=== PATIENT | female | born 1930 | race Caucasian/White ===

== ENCOUNTER 2016-07-24 11:13 | Observation (INO) | payer MEDICARE, OTHER ==
[~2016-07-24] VITALS: Ht 157.5 cm; Wt 70.0 kg
[2016-07-24] VITALS (9 sets, daily range): BP systolic 87–137; BP diastolic 58–82; PULSE 72–82; RESP 16–20; TEMP 98.5; O2SAT 94–99
[~2016-07-24 11:13] MED LIST: ALTA1.256 PO; CALC250 PO; GLUC500C3 PO; LORTAB 5/325 PO; LOVA1TAB47 PO; NEUR300C PO; NEXI20CA PO; NITR-29 OR; TAB-TAB PO; TOPR50TA PO
[2016-07-24] MEDS ORDERED: SODIUM CHLOR 0.9% 1000 ML INJ 1,000 ML IV ONE (11:34)
--- NOTE | 2016-07-24 11:51 | PD ---
HPI Chief Complaint: Abnormal Results Time Seen by Provider: 11:47 Travel History International Travel<30 days: No Contact w/Intl Traveler<30days: No Traveled to known affect area: No History of Present Illness HPI 86-year-old female that presents to the ED for evaluation of altered mental status and hypotension. Patient comes from a correction. Patient apparently was very lethargic and hard to arouse at the facility. Patient was found in the morning but had this episode where she was hard to arouse. Patient was found to be very hypotensive. Patient was given a bolus of fluid with improvement of mentation. Patient denies her having like this before. She does take multiple blood pressure medications. She denies any chest pain or shortness of breath. No headache. 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 She denies any bleeding of any kind. No fevers chills or sweats. Allergies to Levaquin, Lipitor, lisinopril, Percocet, Plavix, Ticlid and Zocor. She states that she is compliant with her medications at the facility which she states. She denies any symptoms at this time but did filled somewhat tired. No obvious falls. No other injuries reported. No pain. She is not sure if she takes any blood thinners. PFSH Past Medical History Arthritis: Yes Autoimmune Disease: No Anxiety: No Depression: No Heart Rhythm Problems: Yes Cancer: Yes (SKIN) Cardiovascular Problems: Yes High Cholesterol: Yes Chest Pain: No Congestive Heart Failure: No Cerebrovascular Accident: Yes (TIA) Diabetes: No Endocrine: No Gastrointestinal Disorders: Yes (HX RECTAL BLEEDING 2008) GERD: Yes Genitourinary: Yes Hiatal Hernia: Yes Hypertension: Yes Immune Disorder: No Implanted Vascular Access Dvce: Yes Musculoskeletal: Yes Neurologic: Yes Psychiatric: No Reproductive: No Respiratory: No Migraines: Yes (POSSIBLE 40 YEARS AGO) Seizures: No Thyroid Disease: No Ulcer: No Tetanus Vaccination: Unknown Influenza Vaccination: Yes Menopausal: Yes Tubal Ligation: Yes Past Surgical History Abdominal Surgery: Yes (ABDOMINAL ABCESS AND COLON RESECTION) Body Medical Devices: SPINAL CORD STIMULATOR,HARDWARE IN BACK,FOOT WITH PLATE AND PINS Cardiac Surgery: Yes (AMOL VALVE REPAIR 1995, BILATERAL BUNIONECTOMY) Gynecologic Surgery: Yes (C SECTION X 3 TUBAL LIGATION) Neurologic Surgery: Yes (LAMINECTOMY AND FUSION L4 S1) Pacemaker: No Other Surgery: Yes Social History Alcohol Use: No Tobacco Use: No Substance Use: No Allergies-Medications (Allergen,Severity, Reaction): Coded Allergies: Levaquin (Unverified Allergy, Severe, TONGUE SWELLS, 07/24/16) Lipitor (Unverified Allergy, Severe, HIVES, RECTAL ITCHING, 07/24/16) Lisinopril (Unverified Allergy, Severe, UNKNOWN, 07/24/16) Percocet (Unverified Allergy, Severe, FEEL LIKE NAUSEA AND VOMITING, BUT NOT VOMITING, 07/24/16) Plavix (Unverified Allergy, Severe, UNKNOWN, 07/24/16) Ticlid (Unverified Allergy, Severe, UNKNOWN, 07/24/16) Zocor (Unverified Allergy, Severe, UNKNOWN, 07/24/16) Reported Meds & Prescriptions Reported Meds & Active Scripts Active Review of Systems Except as stated in HPI: all other systems reviewed are Neg Physical Exam Narrative GENERAL: SKIN: Warm and dry. HEAD: Atraumatic. Normocephalic. EYES: Pupils equal and round 4 mm reactive to light and accommodation. No scleral icterus. No injection or drainage. ENT: No nasal bleeding or discharge. Mucous membranes pink and moist. Tongue is midline. No uvula deviation. NECK: Trachea midline. No JVD. CARDIOVASCULAR: Regular rate and rhythm. No murmurs, S3, S4. RESPIRATORY: No accessory muscle use. Clear to auscultation. Breath sounds equal bilaterally. GASTROINTESTINAL: Abdomen soft, non-tender, nondistended. Hepatic and splenic margins not palpable. MUSCULOSKELETAL: Extremities without clubbing, cyanosis, or edema. No obvious deformities. Full range of motion of the upper and lower extremities bilaterally. 2+ pulses bilaterally. NEUROLOGICAL: Awake and alert. No obvious cranial nerve deficits. Motor grossly within normal limits. Five out of 5 muscle strength in the arms and legs. Normal speech. PSYCHIATRIC: Appropriate mood and affect; insight and judgment normal. Data Data Last Documented VS Vital Signs Date Time Temp Pulse Resp B/P Pulse Ox O2 Delivery O2 Flow Rate FiO2 07/24/16 13:38 72 18 93/65 95 Nasal Cannula 2 07/24/16 11:18 98.5 Orders Electrocardiogram (07/24/16 11:29) Complete Blood Count With Diff (07/24/16 11:29) Basic Metabolic Panel (Bmp) (07/24/16 11:29) Ckmb (Isoenzyme) Profile (07/24/16 11:29) Troponin I (07/24/16 11:29) Prothrombin Time / Inr (Pt) (07/24/16 11:29) Act Partial Throm Time (Ptt) (07/24/16 11:29) Urinalysis - C+S If Indicated (07/24/16 11:29) Magnesium (Mg) (07/24/16 11:29) Thyroid Stimulating Hormone (07/24/16 11:29) Chest, Single Ap (07/24/16 11:29) Ct Brain W/O Iv Contrast(Rout) (07/24/16 11:29) Iv Access Insert/Monitor (07/24/16 11:29) Ecg Monitoring (07/24/16 11:29) Oximetry (07/24/16 11:29) Orthostatic Vital Signs (07/24/16 11:29) Sodium Chlor 0.9% 1000 Ml Inj (Ns 1000 M (07/24/16 11:34) Lactic Acid (07/24/16 11:51) Cath For Specimen (07/24/16 12:58) Free Thyroxine (T4) (07/24/16 13:27) Place In Observation (07/24/16 ) Vital Signs (Adult) Q4H (07/24/16 13:41) Activity Bed Rest (07/24/16 13:41) Scout Sniper / Telemetry .CONTINUOUS (07/24/16 13:41) Diet Regular Basic (07/24/16 Lunch) Sodium Chlor 0.45% 1000 Ml Inj (1/2 Ns 1 (07/24/16 13:41) Sodium Chloride 0.9% Flush (Ns Flush) (07/24/16 13:45) Sodium Chloride 0.9% Flush (Ns Flush) (07/24/16 21:00) Basic Metabolic Panel (Bmp) (07/25/16 06:00) Complete Blood Count With Diff (07/25/16 06:00) Creatine Kinase (Cpk) (07/24/16 13:41) Creatine Kinase (Cpk) (07/24/16 19:41) Troponin I (07/24/16 13:41) Troponin I (07/24/16 19:41) Heparin Inj (Heparin Inj) (07/24/16 13:45) Naloxone Inj (Narcan Inj) (07/24/16 13:45) Admit Order (Ed Use Only) (07/24/16 13:45) Labs Laboratory Tests Test 07/24/16 07/24/16 12:00 12:25 White Blood Count 13.1 TH/MM3 Red Blood Count 4.27 MIL/MM3 Hemoglobin 12.9 GM/DL Hematocrit 39.2 % Mean Corpuscular Volume 91.9 FL Mean Corpuscular Hemoglobin 30.2 PG Mean Corpuscular Hemoglobin 32.9 % Concent Red Cell Distribution Width 13.5 % Platelet Count 358 TH/MM3 Mean Platelet Volume 6.9 FL Neutrophils (%) (Auto) 69.1 % Lymphocytes (%) (Auto) 19.9 % Monocytes (%) (Auto) 9.7 % Eosinophils (%) (Auto) 0.8 % Basophils (%) (Auto) 0.5 % Neutrophils # (Auto) 9.0 TH/MM3 Lymphocytes # (Auto) 2.6 TH/MM3 Monocytes # (Auto) 1.3 TH/MM3 Eosinophils # (Auto) 0.1 TH/MM3 Basophils # (Auto) 0.1 TH/MM3 CBC Comment DIFF FINAL Differential Comment Prothrombin Time 11.8 SEC Prothromb Time International 1.1 RATIO Ratio Activated Partial 27.8 SEC Thromboplast Time Sodium Level 129 MEQ/L Potassium Level 4.4 MEQ/L Chloride Level 95 MEQ/L Carbon Dioxide Level 23.2 MEQ/L Anion Gap 11 MEQ/L Blood Urea Nitrogen 30 MG/DL Creatinine 1.90 MG/DL Estimat Glomerular Filtration 25 ML/MIN Rate Random Glucose 90 MG/DL Calcium Level 8.8 MG/DL Magnesium Level 2.0 MG/DL Total Creatine Kinase 57 U/L Troponin I LESS THAN 0.02 NG/ML Thyroid Stimulating Hormone 6.540 uIU/ML 3rd Gen Lactic Acid Level 1.5 mmol/L MDM Medical Decision Making Medical Screen Exam Complete: Yes Emergency Medical Condition: Yes Medical Record Reviewed: Yes Interpretation(s) CBC & BMP Diagram 07/24/16 12:[address] 07/24/16 1129 Signed Impressions: Service Date/Time: Sunday, July 24, 2016 12:48 - CONCLUSION: Negative for acute process. Lazaro Pierre MD FACR Chest X-Ray 07/24/16 1129 Signed Impressions: Service Date/Time: Sunday, July 24, 2016 11:53 - CONCLUSION: 1. Minimal basilar atelectasis. Postoperative changes as above. Ismael King MD EKG shows sinus rhythm with no sign of acute ischemia or arrythmia read by me and attending. Differential Diagnosis Hypotension versus bleed versus upper mental status versus CVA versus ACS versus bleeding versus overmedication versus medication side effect Narrative Course 86-year-old female that presents to the ED for evaluation of episode of altered mental status with found hypotension. Patient was properly examined and was found to have signs and symptoms of unclear etiology. At this time patient's symptoms seemed to have improved with just fluids. Concern for bleed versus severe overmedication versus CVA or ACS. Patient does have risk factors fall. Recommendation at this time is for labs and imaging. Patient was given 1 L of fluids. Labs and imaging showed no sign of acute disease other than what appears to be acute kidney injury. Patient still hypotensive on exam. Patient still symptomatic whenever she stands up. Unclear etiology for the hypotension but because of her symptoms and still weakness and her recent altered mental status and do recommend obs admission to better evaluate for the hypotension and weakness. She is ago with this plan. Hemoccult was done by me and was negative. Case discussed with Dr. Boothe who agrees to admission Procedures EKG Prior to Arrival: No Diagnosis Primary Impression: Altered mental status Qualified Code: R40.0 - Somnolence Additional Impressions: Hypotension Qualified Code: I95.9 - Hypotension, unspecified hypotension type Acute kidney injury Admitting Information Admitting Physician Requests: Declan Gomez Jul 24, 2016 11:51
--- NOTE | 2016-07-24 12:22 | RADRPT ---
EXAM DATE/TIME: 07/24/2016 11:53 [facility] COMPARISON: No previous studies available for comparison. INDICATIONS : Syncope. Low blood pressure. MEDICAL HISTORY : None. SURGICAL HISTORY : None. ENCOUNTER: Initial ACUITY: 1 day PAIN SCORE: 0/10 LOCATION: Bilateral chest FINDINGS: A single view of the chest demonstrates mild cardiomegaly. Postoperative median sternotomy and mitral valve surgery. Stimulator wires projected over lower thoracic spine. Minimal basilar atelectasis. CONCLUSION: 1. Minimal basilar atelectasis. Postoperative changes as above. Ismael King MD on July 24, 2016 at 12:11 Board Certified Radiologist. This report was verified electronically.
[2016-07-24 12:44] LABS: BASOPHIL # 0.1 TH/MM3 (0-0.2); BASOPHIL % 0.5 % (0.0-2.0); EOSINOPHIL # 0.1 TH/MM3 (0-0.4); EOSINOPHIL % 0.8 % (0.0-4.0); HEMATOCRIT 39.2 % (35.0-46.0); HEMO FLAGS DIFF FINAL; LYMPH % 19.9 % (9.0-44.0); LYMPHOCYTE # 2.6 TH/MM3 (1.0-4.8); MEAN CELL VOLUME 91.9 FL (80.0-100.0); MEAN CORPUSCULAR HEMOGLOBIN 30.2 PG (27.0-34.0); MEAN CORPUSCULAR HGB CONC 32.9 % (32.0-36.0); MONO % 9.7 % (0.0-8.0); NEUT % 69.1 % (16.0-70.0); PLATELET COUNT 358 TH/MM3 (150-450); RED BLOOD COUNT 4.27 MIL/MM3 (4.00-5.30); RED CELL DISTRIBUTION WIDTH 13.5 % (11.6-17.2); WHITE BLOOD COUNT 13.1 TH/MM3 (4.0-11.0)
[2016-07-24 12:57] LABS: APTT (PATIENT) 27.8 SEC (24.3-30.1); INTERNATIONAL NORMALIZED RATIO 1.1 RATIO; PROTHROMBIN TIME - PATIENT 11.8 SEC (9.8-11.6)
--- NOTE | 2016-07-24 12:58 | RADRPT ---
EXAM DATE/TIME: 07/24/2016 12:48 [facility] COMPARISON: No previous studies available for comparison. INDICATIONS : Lethargic and slightly confused with left 4th and 5th digit numbnes RADIATION DOSE: 39.58 CTDIvol (mGy) MEDICAL HISTORY : Cerebrovascular disease. Hypertension. Hypertension. SURGICAL HISTORY : Colon resection. ENCOUNTER: Initial ACUITY: 1 day PAIN SCALE: 0/10 LOCATION: cranial TECHNIQUE: Multiple contiguous axial images were obtained of the head. Using automated exposure control and adjustment of the mA and/or kV according to patient size, radiation dose was kept as low as reasonably achievable to obtain optimal diagnostic quality images. FINDINGS: CEREBRUM: The ventricles are normal for age. No evidence of midline shift, mass lesion, hemorrha ge or acute infarction. No extra-axial fluid collections are seen. POSTERIOR FOSSA: The cerebellum and brainstem are intact. The 4th ventricle is midline. The cer ebellopontine angle is unremarkable. EXTRACRANIAL: The visualized portion of the orbits is intact. SKULL: The calvaria is intact. No evidence of skull fracture. CONCLUSION: Negative for acute process. Lazaro Pierre MD FACR on July 24, 2016 at 12:54 Board Certified Radiologist. This report was verified electronically.
[2016-07-24 13:06] LABS: ANION GAP 11 MEQ/L (5-15); BICARBONATE 23.2 MEQ/L (21.0-32.0); BLOOD UREA NITROGEN 30 MG/DL (7-18); CHLORIDE 95 MEQ/L (98-107); GLOMERULAR FILTRATION RATE 25 ML/MIN (>89); POTASSIUM 4.4 MEQ/L (3.5-5.1); SODIUM (NA) 129 MEQ/L (136-145)
[2016-07-24 13:23] LABS: CREATINE KINASE 57 U/L (26-192)
[2016-07-24] MEDS ORDERED: SODIUM CHLORIDE 0.9% FLUSH 5 ML FLUSH FLUSH PRN (13:45)
[2016-07-24] MEDS ORDERED: NALOXONE HCL 0.4 MG/ML AMP IV PRN (13:45)
--- NOTE | 2016-07-24 14:19 | PD ---
Data Data Last Documented VS Vital Signs Date Time Temp Pulse Resp B/P Pulse Ox O2 Delivery O2 Flow Rate FiO2 07/24/16 13:38 72 18 93/65 95 Nasal Cannula 2 07/24/16 11:18 98.5 Orders Electrocardiogram (07/24/16 11:29) Complete Blood Count With Diff (07/24/16 11:29) Basic Metabolic Panel (Bmp) (07/24/16 11:29) Ckmb (Isoenzyme) Profile (07/24/16 11:29) Troponin I (07/24/16 11:29) Prothrombin Time / Inr (Pt) (07/24/16 11:29) Act Partial Throm Time (Ptt) (07/24/16 11:29) Urinalysis - C+S If Indicated (07/24/16 11:29) Magnesium (Mg) (07/24/16 11:29) Thyroid Stimulating Hormone (07/24/16 11:29) Chest, Single Ap (07/24/16 11:29) Ct Brain W/O Iv Contrast(Rout) (07/24/16 11:29) Iv Access Insert/Monitor (07/24/16 11:29) Ecg Monitoring (07/24/16 11:29) Oximetry (07/24/16 11:29) Orthostatic Vital Signs (07/24/16 11:29) Sodium Chlor 0.9% 1000 Ml Inj (Ns 1000 M (07/24/16 11:34) Lactic Acid (07/24/16 11:51) Cath For Specimen (07/24/16 12:58) Free Thyroxine (T4) (07/24/16 13:27) Place In Observation (07/24/16 ) Vital Signs (Adult) Q4H (07/24/16 13:41) Activity Bed Rest (07/24/16 13:41) Student Financial Aid Manager / Telemetry .CONTINUOUS (07/24/16 13:41) Diet Regular Basic (07/24/16 Lunch) Sodium Chlor 0.45% 1000 Ml Inj (/2 Ns 1 (07/24/16 13:41) Sodium Chloride 0.9% Flush (Ns Flush) (07/24/16 13:45) Sodium Chloride 0.9% Flush (Ns Flush) (07/24/16 21:00) Basic Metabolic Panel (Bmp) (07/25/16 06:00) Complete Blood Count With Diff (07/25/16 06:00) Creatine Kinase (Cpk) (07/24/16 13:41) Creatine Kinase (Cpk) (07/24/16 19:41) Troponin I (07/24/16 13:41) Troponin I (07/24/16 19:41) Heparin Inj (Heparin Inj) (07/24/16 14:00) Naloxone Inj (Narcan Inj) (07/24/16 13:45) Admit Order (Ed Use Only) (07/24/16 13:45) Labs Laboratory Tests Test 07/24/16 07/24/16 12:00 12:25 White Blood Count 13.1 TH/MM3 Red Blood Count 4.27 MIL/MM3 Hemoglobin 12.9 GM/DL Hematocrit 39.2 % Mean Corpuscular Volume 91.9 FL Mean Corpuscular Hemoglobin 30.2 PG Mean Corpuscular Hemoglobin 32.9 % Concent Red Cell Distribution Width 13.5 % Platelet Count 358 TH/MM3 Mean Platelet Volume 6.9 FL Neutrophils (%) (Auto) 69.1 % Lymphocytes (%) (Auto) 19.9 % Monocytes (%) (Auto) 9.7 % Eosinophils (%) (Auto) 0.8 % Basophils (%) (Auto) 0.5 % Neutrophils # (Auto) 9.0 TH/MM3 Lymphocytes # (Auto) 2.6 TH/MM3 Monocytes # (Auto) 1.3 TH/MM3 Eosinophils # (Auto) 0.1 TH/MM3 Basophils # (Auto) 0.1 TH/MM3 CBC Comment DIFF FINAL Differential Comment Prothrombin Time 11.8 SEC Prothromb Time International 1.1 RATIO Ratio Activated Partial 27.8 SEC Thromboplast Time Sodium Level 129 MEQ/L Potassium Level 4.4 MEQ/L Chloride Level 95 MEQ/L Carbon Dioxide Level 23.2 MEQ/L Anion Gap 11 MEQ/L Blood Urea Nitrogen 30 MG/DL Creatinine 1.90 MG/DL Estimat Glomerular Filtration 25 ML/MIN Rate Random Glucose 90 MG/DL Calcium Level 8.8 MG/DL Magnesium Level 2.0 MG/DL Total Creatine Kinase 57 U/L Troponin I LESS THAN 0.02 NG/ML Free Thyroxine 1.08 NG/DL Thyroid Stimulating Hormone 6.540 uIU/ML 3rd Gen Lactic Acid Level 1.5 mmol/L [facility] Supervised Visit with [place]: Yes Narrative Course The history, exam, and medical decision-making in the associated mid-level provider note were completed with my assistance. I reviewed and agree with the findings presented. I attest that I had a [id number] encounter with the patient on the same day, and personally performed and documented my assessment and findings in the medical record. *My assessment and Findings: 86-year-old woman presents emergency department for altered mental status hypotension. Some multiple blood pressure medications. Was difficult to arouse this morning was found to be hypotensive. Etiology is unclear. Possibly related to multiple medications. Kidney functions although worsen normal. Patient will be admitted for observation. Diagnosis Primary Impression: Altered mental status Qualified Code: R40.0 - Somnolence Additional Impressions: Acute kidney injury Hypotension Qualified Code: I95.9 - Hypotension, unspecified hypotension type Wilmar Chau MD Jul 24, 2016 14:18
[2016-07-24] MEDS ORDERED: GABA100C4 PO (14:52)
[2016-07-24] MEDS ORDERED: METO50TA PO (14:52)
[2016-07-24] MEDS ORDERED: NEXI20GR (14:52)
[2016-07-24] MEDS ORDERED: GLUCPOW27 (14:52)
[2016-07-24] MEDS ORDERED: CETI5CHW CHEW (14:52)
[2016-07-24] MEDS ORDERED: LOVA20TA PO (14:52)
[2016-07-24] MEDS ORDERED: TRIAPOW6 TOP (14:52)
[2016-07-24] MEDS ORDERED: CALC600T25 (14:52)
[2016-07-24] MEDS ORDERED: RAMI1.252 PO (14:52)
[2016-07-24] MEDS ORDERED: ASPI81CH37 CHEW (14:52)
[2016-07-24] MEDS: SODIUM CHLOR 0.45% 1000 ML INJ 1,000 ML IV SCH (15:14)
[2016-07-24] MEDS: HEPARIN SODIUM - SQ 10,000 UNITS/ML VIAL SQ SCH (15:14)
[2016-07-24 15:36] LABS: BACTERIA, URINE FEW /hpf; BLOOD, URINE NEG (NEG); COMMENT (UR) CULTURE INDICATED; CULTURE IF INDICATED CULTURE INDICATED; GLUCOSE,URINE NEG (NEG); HYALINE CAST, URINE 7 /lpf (RARE); KETONE, URINE NEG (NEG); NITRITE,URINE NEG (NEG); PH, URINE 5.5 (5.0-8.5); SQUAMOUS EPITHELIAL CELL URINE 18 /hpf (0-5); URINE COLOR YELLOW (YELLW/STRAW)
[2016-07-24] MEDS: SODIUM CHLORIDE 0.9% FLUSH 5 ML FLUSH FLUSH SCH (21:00)
--- NOTE | 2016-07-24 21:52 | HP.UPD ---
H&P Update Note This is a 56-year-old female seen by the undersigned in room e-54 at the Emergency department At [facility] today. She was brought in after an episode of poor responsiveness and a very low blood pressure from a local assisted.She is on multiple blood pressure medications. She did improve after IV fluids. She is being in kept on observation status. Full history and physical dictated by the nurse practitioner Nasrin Boothe MD Jul 24, 2016 21:48
[2016-07-24 23:46] LABS: CREATINE KINASE 91 U/L (26-192)
[2016-07-25] VITALS (7 sets, daily range): BP systolic 116–146; BP diastolic 51–70; PULSE 69–91; RESP 18–22; TEMP 95.6–97.4; O2SAT 96–100
[2016-07-25] MEDS: HEPARIN SODIUM - SQ 10,000 UNITS/ML VIAL SQ SCH ×2 (01:12→13:57)
[2016-07-25] MEDS: ASPIRIN 81 MG CHEW TAB CHEW SCH (08:29)
[2016-07-25] MEDS: PRAVASTATIN SOD 20 MG TAB PO SCH (08:30)
[2016-07-25] MEDS: SODIUM CHLORIDE 0.9% FLUSH 5 ML FLUSH FLUSH SCH ×2 (08:30→21:00)
[2016-07-25] MEDS: PANTOPRAZOLE SOD 20 MG DELAYED RELEASE TAB PO SCH (08:30)
[2016-07-25] MEDS: TRIAMCINOLONE ACETONIDE 0.5% TOP SCH ×2 (08:30→21:14)
[2016-07-25] MEDS: GABAPENTIN 100 MG CAP PO SCH ×3 (08:30→18:33)
[2016-07-25] MEDS: cefTRIAXone INJ 1,000 MG in SODIUM CHLORIDE 0.9% INJ 100 ML IV SCH (08:37)
--- NOTE | 2016-07-25 08:41 | HHI.PR ---
Subjective Subjective Remarks awake, oriented to self, place, not sure why she is here feels weak no cp no sob no acute changes overnight has skin tears no fever BP better Tele-SR Review of Systems Constitutional Constitutional Remarks 12 point ROS completed, unreliable Vitals/Results Vital Signs Vital Signs Date Time Temp Pulse Resp B/P Pulse Ox O2 Delivery O2 Flow Rate FiO2 07/25/16 08:00 96.7 71 18 121/58 96 07/25/16 04:23 97.4 78 20 126/59 99 07/25/16 00:01 71 07/24/16 22:58 98.5 82 20 124/58 99 07/24/16 19:19 72 16 125/76 99 Nasal Cannula 2 07/24/16 16:48 72 18 137/69 98 Nasal Cannula 2 07/24/16 14:20 76 18 112/82 97 Nasal Cannula 2 07/24/16 13:38 72 18 93/65 95 Nasal Cannula 2 07/24/16 11:44 20 94 Nasal Cannula 2 07/24/16 11:40 73 18 94/58 73 18 91/61 83 18 87/58 07/24/16 11:33 73 18 91/61 94 Nasal Cannula 2 07/24/16 11:33 73 20 93 Nasal Cannula 2 07/24/16 11:18 98.5 76 18 91/61 96 CBC/BMP: 07/24/16 1200 07/24/16 1200 Lab Results Laboratory Tests Test 07/24/16 07/24/16 07/24/16 07/24/16 12:00 12:25 14:55 19:10 White Blood Count 13.1 TH/MM3 Red Blood Count 4.27 MIL/MM3 Hemoglobin 12.9 GM/DL Hematocrit 39.2 % Mean Corpuscular Volume 91.9 FL Mean Corpuscular Hemoglobin 30.2 PG Mean Corpuscular Hemoglobin 32.9 % Concent Red Cell Distribution Width 13.5 % Platelet Count 358 TH/MM3 Mean Platelet Volume 6.9 FL Neutrophils (%) (Auto) 69.1 % Lymphocytes (%) (Auto) 19.9 % Monocytes (%) (Auto) 9.7 % Eosinophils (%) (Auto) 0.8 % Basophils (%) (Auto) 0.5 % Neutrophils # (Auto) 9.0 TH/MM3 Lymphocytes # (Auto) 2.6 TH/MM3 Monocytes # (Auto) 1.3 TH/MM3 Eosinophils # (Auto) 0.1 TH/MM3 Basophils # (Auto) 0.1 TH/MM3 CBC Comment DIFF FINAL Differential Comment Prothrombin Time 11.8 SEC Prothromb Time International 1.1 RATIO Ratio Activated Partial 27.8 SEC Thromboplast Time Sodium Level 129 MEQ/L Potassium Level 4.4 MEQ/L Chloride Level 95 MEQ/L Carbon Dioxide Level 23.2 MEQ/L Anion Gap 11 MEQ/L Blood Urea Nitrogen 30 MG/DL Creatinine 1.90 MG/DL Estimat Glomerular Filtration 25 ML/MIN Rate Random Glucose 90 MG/DL Calcium Level 8.8 MG/DL Magnesium Level 2.0 MG/DL Total Creatine Kinase 57 U/L 91 U/L Troponin I LESS THAN 0.02 LESS THAN 0.02 NG/ML NG/ML Free Thyroxine 1.08 NG/DL Thyroid Stimulating Hormone 6.540 uIU/ML 3rd Gen Lactic Acid Level 1.5 mmol/L Urine Color YELLOW Urine Turbidity HAZY Urine pH 5.5 Urine Specific [place] 1.014 Urine Protein NEG mg/dL Urine Glucose (UA) NEG mg/dL Urine Ketones NEG mg/dL Urine Occult Blood NEG Urine Nitrite NEG Urine Bilirubin NEG Urine Urobilinogen LESS THAN 2.0 MG/DL Urine Leukocyte Esterase LARGE Urine RBC 1 /hpf Urine WBC 111 /hpf Urine Squamous Epithelial 18 /hpf Cells Urine Bacteria FEW /hpf Urine Hyaline Casts 7 /lpf Microscopic Urinalysis Comment CULTURE INDICATED Microbiology Microbiology 07/24/16 Urine Culture, Received Pending Physical Exam General General Appearance: Well Developed, No Acute Distress, Comfortable, Obese Eyes Eye Exam: Pupils Equal, Pupils Reactive Ears & Nose Ears & Nose Exam: Nasal Mucosa [place] Throat Throat Exam: Oral Mucosa [place] & Moist Neck Neck Exam: Neck Supple, Trachea Midline Pulmonary Resp Exam: Breath Sounds Equal, Diminished Breath Sounds Cardiology CV Exam: Regular Gastrointestinal/Abdomen GI Exam: Soft, Non-Tender, Bowel Sounds Present, Non-Distended Musculoskeletal MS Exam: Joints Intact Integumentary Skin Exam: Warm, Dry Skin Remarks skin tears, bruises arms Extremeties Extremities Exam: Pedal Pulses Palpable, Pitting Edema Neurologic Neuro Exam: Alert, Awake, Speech Clear, Moving All Extremities, No Focal Deficits Psychiatric Psych Exam: Appropriate Responses VTE Prophylaxis VTE Prophylaxis Device: SCDs PUD Prophylasis PUD Prophylaxis: Protonix Assessment/Plan Problem List: (1) Acute kidney injury (2) Altered mental status (3) Hypotension (4) UTI (urinary tract infection) Assessment/Plan continue with IVF BP improving, continue to hold BP meds labs pending this morning UA + UTI, start Rocephin 1 gm IV daily follow cultures PT eval and tx OOB Heparin for DVT prophylaxis F/U labs, pending Poss. dc tomorrow D/W RN D/W Dr. Boothe D/W pt This patient was seen by myself and Dr. Boothe, this note is written on his behalf. Problem Qualifiers (1) Altered mental status: Qualified Code: R40.0 - Somnolence (2) Hypotension: Qualified Code: I95.9 - Hypotension, unspecified hypotension type (3) UTI (urinary tract infection): Qualified Code: N39.0 - Urinary tract infection without hematuria, site unspecified Princess Jerez Jul 25, 2016 08:40
--- NOTE | 2016-07-25 08:51 | MH ---
cc: THAO MONREAL MD DATE OF ADMISSION 07/24/2016 DATE OF 1930 CHIEF COMPLAINT Altered mental status, lethargy. HISTORY OF THE PRESENT ILLNESS This is a pleasant 86-year-old white female who was brought to the emergency room with altered mental status and hypotension. The patient lives in [facility] which is an assisted living. This a.m. the facility employees came over to give the patient her breakfast and to give the patient her medications and noticed that she was hard to arouse. The patient approximately a week ago was diagnosed with a urinary tract infection and was placed on an antibiotic which she has been taking for four days, this would be day five. The patient also has had a decreased appetite and has not been consuming p.o. fluids and/or food like her norm. She states that she had a numbness - sensation to her whole body, felt very cold and was very drowsy. The patient states that she knew where she was but just did not "feel right". The patient denies any nausea or vomiting, shortness of breath, headache or chest pain. The patient is very hard of hearing. The patient does take multiple blood pressure medications and is given her medications daily per the staff. According to the nursing staff the patient does not have her vital signs taken and this facility is a assisted living. The patient lives in the apartment by herself and her family comes by frequently to check on her. The patient denies any fever but is having some mild chills at this time, although the room she is in is very cool. The patient is compliant taking her medications. She denies any falls and currently she is alert, oriented and a fairly good historian. PAST MEDICAL HISTORY 1. Arthritis. 2. Degenerative disc disease. 3. Cardiovascular disease. 4. Skin cancer. 5. Hyperlipidemia. 6. History of transient ischemic attacks. 7. GI bleeding / rectal bleeding. 8. Gastroesophageal reflux disease. 9. Hiatal hernia. 10. Hypertension. 11. Migraines at least 40 years ago. She has had her influenza vaccine. Some of this information is being obtained from the patient and some per the record. PAST SURGICAL HISTORY 1. Abdominal abscess and colon resection. 2. Spinal cord stimulator. 3. Hardware in her back. 4. Foot with plate and pins. 5. Mitral valve replacement in 1995. 6. Bilateral bunionectomy. 7. section times three. 8. Tubal ligation. 9. Laminectomy. 10. Fusion of L4 and S1. ALLERGIES LEVAQUIN, LIPITOR, LISINOPRIL, PERCOCET, PLAVIX, TICLID AND ZOCOR. MEDICATIONS Are currently being reconciled. Please see record or I will go back and obtain at a later time. SOCIAL HISTORY The patient is . Currently lives in [facility]. No alcohol. No tobacco. No illicit drug use. REVIEW OF SYSTEMS A 12 point review was obtained. Positive findings include chills, pale, pallor skin, altered mental status was noted earlier but is currently alert and oriented, trace of edema bilaterally in her lower extremities, mild decreased breath sounds in her bases. All other systems negative or unremarkable. PHYSICAL EXAMINATION VITAL SIGNS: Temperature is 98.5, pulse 76, respiratory rate 18, blood pressure 112/82. First blood pressure taken in the emergency room was 91/61. Noted blood pressure from EMS stated per the nurse 46/24 on arrival to her. In the emergency room the patient did receive a liter of fluids and Narcan. GENERAL: Well-nourished but frail 86-year-old white female looks younger than her stated age. She is resting in the bed. Able to converse. Alert and oriented and a fairly good historian. SKIN: Pale. Warm and dry. HEENT: Atraumatic, normocephalic. Pupils equal, round, reactive to light and accommodation at 3. No scleral icterus. No drainage. Trachea is midline. There is no nasal discharge. On mucus, no sputum to expel. Tongue is midline, slightly dry. NECK: Supple. CARDIOVASCULAR: Regular rate and rhythm. Trace of edema bilaterally in her lower extremities. No murmurs, rubs, or gallops appreciated. Distant heart sounds. LUNGS: Essentially clear to auscultation anterior and posterior. I hear no rhonchi, no wheezes. Her breath sounds are fairly clear with a very minimal amount of decreased sounds bilaterally in her bases. ABDOMEN: Soft. Nontender. Nondistended. MUSCULOSKELETAL: She is moving all of her extremities with purpose. She has no cyanosis. Pulses are intact. Trace of edema lower extremities. NEUROLOGICAL: She is awake, alert, oriented. Strength, she can overcome resistance in her upper extremities. Speech is clear with a shaky voice but understandble. PSYCHIATRIC: Appropriate mood. Insight and judgment normal. LABORATORY DATA WBC count 13.1, RBC 4.27, hemoglobin 12.9, hematocrit 39.2, platelet count 358. Monocytes 9.7. Neutrophils 9. Sodium is 129, potassium 4.4, chloride 95, carbon dioxide 23.2, anion gap 11, BUN 30, creatinine 1.9. GFR 25. Her troponin is less than 0.02. TSH is high 6.540. Urinalysis is pending. PT INR is 1.1. IMAGING Imaging studies show normal CT scan of the head and normal chest x-ray. ASSESSMENT AND PLAN 1. Altered mental status. 2. Urinary tract infection. 3. Hypotension. 4. Acute kidney injury with dehydration. 5. Hyponatremia. 6. Gastroesophageal reflux disease. 7. Leukocytosis. 8. History of TIAs. 9. Elevated thyroid level. Our plan is to admit, give the patient Protonix [address] her in observation, monitor her vital signs q.4h. At this time we will put her on a cardiac monitor technician and keep her bed rest. Regular diet. CBC and BMP in the morning. The patient had multiple labs drawn which included a low sodium level. She has received IV fluids and we will follow up on her sodium in the morning. Deep venous thrombosis prophylaxis with heparin. Peptic ulcer disease prophylaxis and treatment with Protonix. The patient has some other labs pending such as a magnesium level. We will check and see if the patient is taking any thyroid medications which could explain her chills and even her altered mental status and hypotension. Medications will be reconciled and/or adjusted per Dr. Monreal. Family has been notified per the nursing staff here in the emergency room and they are aware as well as the assisted living that the patient is being kept overnight. We will follow. Dictated by: KEILY Gonzalez MD JEFFREY Mayer/NIRAJ /3:18 PM /8:49 AM
[2016-07-25 09:12] LABS: AUTOMATED NEUTROPHIL # 6.5 TH/MM3 (1.8-7.7); BASOPHIL # 0.1 TH/MM3 (0-0.2); BASOPHIL % 0.6 % (0.0-2.0); EOSINOPHIL # 0.2 TH/MM3 (0-0.4); EOSINOPHIL % 2.1 % (0.0-4.0); HEMATOCRIT 37.8 % (35.0-46.0); HEMO FLAGS DIFF FINAL; LYMPHOCYTE # 2.8 TH/MM3 (1.0-4.8); MEAN CELL VOLUME 91.6 FL (80.0-100.0); MEAN CORPUSCULAR HEMOGLOBIN 30.8 PG (27.0-34.0); MEAN CORPUSCULAR HGB CONC 33.7 % (32.0-36.0); MONO % 7.7 % (0.0-8.0); NEUT % 62.6 % (16.0-70.0); PLATELET COUNT 290 TH/MM3 (150-450); RED BLOOD COUNT 4.12 MIL/MM3 (4.00-5.30); RED CELL DISTRIBUTION WIDTH 13.4 % (11.6-17.2); WHITE BLOOD COUNT 10.4 TH/MM3 (4.0-11.0)
[2016-07-25 09:58] LABS: BICARBONATE 23.4 MEQ/L (21.0-32.0); POTASSIUM 4.4 MEQ/L (3.5-5.1)
[2016-07-25] MEDS: SODIUM CHLOR 0.45% 1000 ML INJ 1,000 ML IV SCH ×2 (14:00→21:14)
[2016-07-26] MEDS: HEPARIN SODIUM - SQ 10,000 UNITS/ML VIAL SQ SCH ×2 (02:43→14:10)
[2016-07-26 04:15] VITALS: BP 140/73; PULSE 89; RESP 18; TEMP 97.8; O2SAT 97
--- NOTE | 2016-07-26 07:10 | EKG ---
Date Performed: 07/24/2016 Time Performed: 12:34:31 PTAGE: 86 years EKG: Sinus rhythm BORDERLINE RIGHT AXIS DEVIATION INTRAVENTRICULAR CONDUCTION DELAY INFERIOR MYOCARDIAL INFARCTION ABN ORMAL ECG NO PREVIOUS TRACING DOCTOR: Pedro Luis Barker Interpretating Date/Time 07/26/2016 07:07:16
--- NOTE | 2016-07-26 08:20 | HHI.PR ---
Subjective Subjective Remarks awakes easily, oriented x 3 feels better some right shoulder pain no cp no sob has skin tears and bruises to arm pt. states she is wheelchair bound at [facility] no fever anxious to go back to [facility] Review of Systems Constitutional Constitutional Remarks 12 point ROS completed, negative except as noted above Vitals/Results Intake & Output 07/25/16 07/25/16 07/26/16 15:00 23:00 07:00 Intake Total 600 ml 1366 ml Balance 600 ml 1366 ml Intake Oral 600 ml 360 ml IV Total 1006 ml # Voids 4 4 # Bowel Movements 1 1 Vital Signs Vital Signs Date Time Temp Pulse Resp B/P Pulse Ox O2 Delivery O2 Flow Rate FiO2 07/26/16 04:15 97.8 89 18 140/73 97 07/25/16 20:01 95.6 91 20 146/65 96 07/25/16 16:02 95.8 84 22 131/70 100 07/25/16 12:00 96.9 89 20 116/51 98 CBC/BMP: 07/25/16 0845 07/25/16 0845 Lab Results Laboratory Tests Test 07/25/16 08:45 White Blood Count 10.4 TH/MM3 Red Blood Count 4.12 MIL/MM3 Hemoglobin 12.7 GM/DL Hematocrit 37.8 % Mean Corpuscular Volume 91.6 FL Mean Corpuscular Hemoglobin 30.8 PG Mean Corpuscular Hemoglobin 33.7 % Concent Red Cell Distribution Width 13.4 % Platelet Count 290 TH/MM3 Mean Platelet Volume 6.6 FL Neutrophils (%) (Auto) 62.6 % Lymphocytes (%) (Auto) 27.0 % Monocytes (%) (Auto) 7.7 % Eosinophils (%) (Auto) 2.1 % Basophils (%) (Auto) 0.6 % Neutrophils # (Auto) 6.5 TH/MM3 Lymphocytes # (Auto) 2.8 TH/MM3 Monocytes # (Auto) 0.8 TH/MM3 Eosinophils # (Auto) 0.2 TH/MM3 Basophils # (Auto) 0.1 TH/MM3 CBC Comment DIFF FINAL Differential Comment Sodium Level 132 MEQ/L Potassium Level 4.4 MEQ/L Chloride Level 98 MEQ/L Carbon Dioxide Level 23.4 MEQ/L Anion Gap 11 MEQ/L Blood Urea Nitrogen 22 MG/DL Creatinine 1.03 MG/DL Estimat Glomerular Filtration 51 ML/MIN Rate Random Glucose 86 MG/DL Calcium Level 8.8 MG/DL Total Creatine Kinase 101 U/L Troponin I 0.02 NG/ML Physical Exam General General Appearance: Well Developed, No Acute Distress, Comfortable, Obese Eyes Eye Exam: Pupils Equal, Pupils Reactive Ears & Nose Ears & Nose Exam: Nasal Mucosa [place] Throat Throat Exam: Oral Mucosa [place] & Moist Neck Neck Exam: Neck Supple, Trachea Midline Pulmonary Resp Exam: Breath Sounds Equal, Diminished Breath Sounds Cardiology CV Exam: Regular Gastrointestinal/Abdomen GI Exam: Soft, Non-Tender, Bowel Sounds Present, Non-Distended Musculoskeletal MS Exam: Joints Intact Integumentary Skin Exam: Warm, Dry Skin Remarks skin tears, bruises arms Extremeties Extremities Exam: Pedal Pulses Palpable, Pitting Edema Neurologic Neuro Exam: Alert, Awake, Speech Clear, Moving All Extremities, No Focal Deficits Psychiatric Psych Exam: Appropriate Responses VTE Prophylaxis VTE Prophylaxis Device: SCDs PUD Prophylasis PUD Prophylaxis: Protonix Assessment/Plan Problem List: (1) Acute kidney injury (2) Altered mental status (3) Hypotension (4) UTI (urinary tract infection) Assessment/Plan stop IVF BP 140s renal function improved UA + UTI, start Rocephin 1 gm IV daily UC group D enterococcus, sens. pending PT eval and tx OOB Heparin for DVT prophylaxis possible dc to [facility] today will wait for sens. D/W RN D/W Dr. Boothe D/W pt This patient was seen by myself and Dr. Boothe, this note is written on his behalf. Problem Qualifiers (1) Altered mental status: Qualified Code: R40.0 - Somnolence (2) Hypotension: Qualified Code: I95.9 - Hypotension, unspecified hypotension type (3) UTI (urinary tract infection): Qualified Code: N39.0 - Urinary tract infection without hematuria, site unspecified Princess Jerez Jul 26, 2016 08:20
--- NOTE | 2016-07-26 08:21 | HHI.DCPOC ---
Discharge Care Plan Diagnosis: (1) UTI (urinary tract infection) (2) Altered mental status (3) Hypotension (4) Acute kidney injury Your Health Problems Are: Anxiety Difficulty with ADL Goals to Promote Your Health * To prevent worsening of your condition and complications * To maintain your health at the optimal level Directions to Meet Your Goals Take your medications as prescribed Follow your dietary instruction Follow activity as directed Keep your appointments as scheduled Take your immunizations and boosters as scheduled If your symptoms worsen call your PCP, if no PCP go to Urgent Care Center or Emergency Room Smoking is Dangerous to Your Health. Avoid second hand smoke Call the 24-hour hour crisis hotline for domestic abuse at Princess Jerez Jul 26, 2016 08:21
--- NOTE | 2016-07-26 08:22 | HHI.FF ---
Face to Face Verification Diagnosis: (1) UTI (urinary tract infection) (2) Altered mental status (3) Hypotension (4) Acute kidney injury Physical Therapy Order: Evaluate and Treat Home Health Nursing Order: Medical education Nursing assessment with vital signs I have seen patient Melissa Prater on 07/26/16. My clinical findings support the need for the requested home health care services because: Deconditioned w/ increased weakness Limited ability to care for self I certify that my clinical findings support that this patient is homebound because: Need for psychosocial assistance [id number] bed/chair Princess Jerez [facility] Jul 26, 2016 08:22
[2016-07-26] MEDS: cefTRIAXone INJ 1,000 MG in SODIUM CHLORIDE 0.9% INJ 100 ML IV SCH (08:29)
[2016-07-26] MEDS: SODIUM CHLORIDE 0.9% FLUSH 5 ML FLUSH FLUSH SCH (08:30)
[2016-07-26] MEDS: GABAPENTIN 100 MG CAP PO SCH ×2 (08:30→14:10)
[2016-07-26] MEDS: PRAVASTATIN SOD 20 MG TAB PO SCH (08:30)
[2016-07-26] MEDS: ASPIRIN 81 MG CHEW TAB CHEW SCH (08:30)
[2016-07-26] MEDS: PANTOPRAZOLE SOD 20 MG DELAYED RELEASE TAB PO SCH (08:30)
[2016-07-26] MEDS: TRIAMCINOLONE ACETONIDE 0.5% TOP SCH (08:31)
[2016-07-26 08:52] VITALS: BP 133/62; PULSE 80; RESP 18; TEMP 97; O2SAT 97
[2016-07-26 09:08] VITALS: PULSE 91
[2016-07-26 11:47] VITALS: BP 187/77; PULSE 90; RESP 18; O2SAT 96
[2016-07-26] MEDS ORDERED: METOPROLOL TARTRATE 50 MG TAB PO SCH (13:15)
[2016-07-26 15:51] VITALS: BP 164/74; PULSE 76; RESP 18; O2SAT 96
[2016-07-26] MEDS ORDERED: PENI500T PO (16:04)
--- NOTE | 2016-07-26 16:10 | HHI.DS ---
Discharge Summary Admission Date Jul 24, 2016 at 13:45 Discharge Date: Jul 26, 2016 Admitting Diagnosis altered mental status, hypotension, acute kideny injury (1) UTI (urinary tract infection) (2) Altered mental status (3) Hypotension (4) Acute kidney injury CBC/BMP: 07/25/16 0845 07/25/16 0845 Significant Findings Laboratory Tests Test 07/24/16 07/24/16 07/24/16 07/25/16 12:00 14:55 19:10 08:45 Prothrombin Time 11.8 SEC (9.8-11.6) Sodium Level 129 MEQ/L 132 MEQ/L (136-145) (136-145) Chloride Level 95 MEQ/L (98-107) Blood Urea Nitrogen 30 MG/DL (7-18) 22 MG/DL (7-18) Creatinine 1.90 MG/DL 1.03 MG/DL (0.50-1.00) (0.50-1.00) Estimat Glomerular Filtration 25 ML/MIN (>89) 51 ML/MIN (>89) Rate Troponin I LESS THAN 0.02 LESS THAN 0.02 NG/ML NG/ML (0.02-0.05) (0.02-0.05) Thyroid Stimulating Hormone 6.540 uIU/ML 3rd Gen (0.358-3.740) White Blood Count 13.1 TH/MM3 (4.0-11.0) Mean Platelet Volume 6.9 FL 6.6 FL (7.0-11.0) (7.0-11.0) Monocytes (%) (Auto) 9.7 % (0.0-8.0) Neutrophils # (Auto) 9.0 TH/MM3 (1.8-7.7) Monocytes # (Auto) 1.3 TH/MM3 (0-0.9) Urine Turbidity HAZY (CLEAR) Urine Leukocyte Esterase LARGE (NEG) Urine WBC 111 /hpf (0-5) Urine Bacteria FEW /hpf (NONE) Imaging Last Impressions Head CT 07/24/169 Signed Impressions: Service Date/Time: Sunday, July 24, 2016 12:48 - CONCLUSION: Negative for acute process. Lazaro Pierre MD FACR Chest X-Ray 07/24/16 1129 Signed Impressions: Service Date/Time: Sunday, July 24, 2016 11:53 - CONCLUSION: 1. Minimal basilar atelectasis. Postoperative changes as above. Ismael King MD Hospital Course This is a pleasant 86-year-old white female who was brought to the emergency room with altered mental status and hypotension. The patient lives in [facility] which is an assisted living. The facility employees came over to give the patient her breakfast and medications and noticed that she was hard to arouse. The patient approximately a week ago was diagnosed with a urinary tract infection and was placed on an antibiotic which she has been taking for four days. The patient also has had a decreased appetite and has not been consuming p.o. fluids and/or food like her norm. She stated that she had a numbness - sensation to her whole body, felt very cold and was very drowsy. The patient stated that she knew where she was but just did not "feel right". The patient denied any nausea or vomiting, shortness of breath, headache or chest pain. The patient was very hard of hearing. The patient did take multiple blood pressure medications and was given her medications daily per the staff. Patient presented to the emergency room, was found positive for UTI, blood pressure was low. She was started on empiric antibiotics and fluids were given. CT of the head and chest x-ray were negative patient was admitted for: (1) Acute kidney injury (2) Altered mental status (3) Hypotension (4) UTI (urinary tract infection) During the course of the hospitalization, the following to place: Patient was put on IV fluids, her renal function was monitored Electrolytes were replaced as needed She was continued on antibiotics, Renal function improve, her IV fluids were stopped Patient's mentation improved, she was alert and oriented 3 Physical therapy was ordered Patient indicated she was wheelchair-bound, she was able to transfer Her blood pressure started coming up, her medications were restarted UA + UTI, start Rocephin 1 gm IV daily UC group D enterococcus, sensitivity noted Ordered PT eval and tx, OOB with assisted Put on Heparin for DVT prophylaxis Case management consulted for discharge planning, home health care ordered Patient's son updated of discharge plan, he was agreeable Patient improved, no fever, back to normal mental status Renal function improve Patient was discharged back to [facility] in stable condition Pt Condition on Discharge: Stable Discharge Disposition: [facility] with [facility] Discharge Instructions DIET: Follow Instructions for: Heart Healthy Diet Activities you can perform: Weight Bearing as Kody Follow up Referrals: PCP Follow-up New Medications: Penicillin V Potassium (Penicillin V Potassium) 500 Mg Tab 500 MG PO Q8H Infection #21 Ref 0 TAB Continued Medications: Aspirin (Aspirin Low Dose) 81 Mg Chew 81 MG CHEW DAILY Ref 0 TAB Calcium Carbonate (Calcium) 600 Mg Tab 600 MG Cetirizine (Cetirizine) 5 Mg Chew 5 MG CHEW DAILY Allergies Ref 0 TAB Esomeprazole (Nexium) 20 Mg Pkt 20 MG Gabapentin (Gabapentin) 100 Mg Cap 100 MG PO TID #90 Ref 0 CAP Dalnvzrxluz-Qgrecycgwoi-Vxcsah (Glucosamine & Cho... 3409-1132-445 mg-mg-Unit) 1 Pow Pow 750 Lovastatin (Lovastatin) 20 Mg Tab 20 MG PO DAILY Cholesterol Management #30 Ref 0 TAB Metoprolol Tartrate (Metoprolol Tartrate) 50 Mg Tab 50 MG PO DAILY #30 Ref 0 TAB Ramipril (Ramipril) 1.25 Mg Cap 1.25 MG PO DAILY #30 Ref 0 CAP Triamcinolone (Bulk) (Triamcinolone) 1 Pow Pow 0.5 % TOP BID Princess Jerez Jul 26, 2016 16:10
[2016-07-27] MEDS ORDERED: RAMIPRIL 1.25 MG CAP PO SCH (09:00)
== END 2016-07-26 18:48 | disposition home or self-care (01) ==
LOC: NEPE 11:13 → NEDA 13:45 → NEDH 20:41 → NEPHCDU 22:56
PROVIDERS: ADMIT Specialist; ATTEND Specialist
DX: N39.0 Urinary tract infection, site not specified (principal); B95.2 Enterococcus as the cause of diseases classified elsewhere; R41.82 Altered mental status, unspecified; I95.9 Hypotension, unspecified; N17.9 Acute kidney failure, unspecified; E86.0 Dehydration; E87.1 Hypo-osmolality and hyponatremia; I10 Essential (primary) hypertension; E78.5 Hyperlipidemia, unspecified; R94.31 Abnormal electrocardiogram [ECG] [EKG]; H91.90 Unspecified hearing loss, unspecified ear; I25.10 Atherosclerotic heart disease of native coronary artery without angina pectoris; J98.11 Atelectasis; K21.9 Gastro-esophageal reflux disease without esophagitis; E78.00 Pure hypercholesterolemia, unspecified; Z85.828 Personal history of other malignant neoplasm of skin; Z86.73 Personal history of transient ischemic attack (TIA), and cerebral infarction without residual deficits; Z95.1 Presence of aortocoronary bypass graft; Z95.2 Presence of prosthetic heart valve; Z99.3 Dependence on wheelchair; Z88.1 Allergy status to other antibiotic agents
CPT/HCPCS: 70450; 71010; 76937; 80048; 81001; 82550; 83605; 83735; 84439; 84443; 84484; 85025; 85610; 85730; 87077; 87086; 87186; 93005; 97163; 99285; G0378; J0696; J1644; J7030; G8978-GP; G8979-GP